=== PATIENT | male | born 1965 | race Two or more races ===

== ENCOUNTER 2019-01-31 15:09 | Inpatient (IN) | payer MEDICAID, OTHER ==
[2019-01-31] VITALS (16 sets, daily range): BP systolic 102–163; BP diastolic 51–85
[~2019-01-31] VITALS: Ht 170.2 cm; Wt 56.7 kg
[2019-01-31] MEDS ORDERED: SODIUM CHLORIDE 0.9% 1,000 ML IV ONE (15:26)
[2019-01-31 15:57] LABS: BASOPHILS % 0.5 % (0.0-2.0); EOSINOPHILS % 0.7 % (0.0-5.0); HEMATOCRIT. 39.8 % (42.0-52.0); HEMOGLOBIN. 13.1 g/dL (14.0-18.0); LYMPHOCYTES % 16.4 % (20.0-50.0); MEAN CORPUSCULAR VOLUME 97.2 fL (80.0-94.0); MEAN PLATELET VOLUME 7.9 fl (7.4-10.4); NEUTROPHILS % 74.4 % (40.0-76.0); PLATELET 300 x1000/uL (130-400)
[2019-01-31 16:16] LABS: CHLORIDE 102 mEq/L (98-107)
[2019-01-31 16:20] LABS: ETHANOL BLOOD < 10 mg/dL
[2019-01-31] MEDS ORDERED: NOREPINEPHRINE 4MG/250ML PMX 250 ML IV ONE (16:20)
[2019-01-31] MEDS ORDERED: DOPAMINE 400MG/250ML PREMIX 250 ML IV ONE (16:21)
[2019-01-31 16:33] LABS: CLARITY URINE CLOUDY (CLEAR); COLOR URINE DARK YELLOW (YELLOW); KETONES URINE TRACE (NEGATIVE); LEUKOCYTE ESTERASE URINE NEGATIVE (NEGATIVE); NITRITE URINE NEGATIVE (NEGATIVE); OCCULT BLOOD URINE NEGATIVE (NEGATIVE); PROTEIN URINE TRACE (NEGATIVE); SPECIFIC GRAVITY URINE 1.017 (1.005-1.030); UROBILINOGEN URINE 0.2 E.U./dL (0.2-1.0)
[2019-01-31 16:43] LABS: *AMPHETAMINES SCREEN URINE NEGATIVE (NEGATIVE); *BARBITURATES SCREEN URINE NEGATIVE (NEGATIVE); *BENZODIAZEPINES SCREEN URINE PRESUMTIVE POSITIVE (NEGATIVE)
[2019-01-31 16:44] LABS: *COCAINE SCREEN URINE NEGATIVE (NEGATIVE); CANNABINOID URINE SCREEN NEGATIVE (NEGATIVE); METHADONE URINE SCREEN NEGATIVE (NEGATIVE); OPIATES URINE SCREEN NEGATIVE (NEGATIVE); PHENCYCLIDINE URINE SCREEN NEGATIVE (NEGATIVE)
[2019-01-31] MEDS ORDERED: GLUCAGON,HUMAN RECOMBINANT 1MG/VIAL IV ONE ×4 (17:00→17:15)
[2019-01-31 17:12] LABS: CREATINE KINASE 1190 IU/L (39-308)
[2019-01-31] MEDS ORDERED: PHENYLEPHRINE 10 MG in DEXT 5% WATER 249 ML IV SCH (18:15)
[2019-01-31] MEDS ORDERED: NOREPINEPHRINE 4 MG in DEXT 5% WATER 250 ML IV PRN (18:15)
[2019-01-31] MEDS ORDERED: VASOPRESSIN 10 UNIT in SODIUM CHLORIDE 0.9% 99.5 ML SCH (18:15)
[2019-01-31] MEDS ORDERED: INSULIN REGULAR (DRIP) 100 UNITS in SODIUM CHLORIDE 0.9% 100 ML IV ONE (18:15)
[2019-01-31] MEDS ORDERED: DOPAMINE 400MG/250ML PREMIX 250 ML IV SCH (18:15)
[2019-01-31] MEDS ORDERED: VASOPRESSIN 10 UNIT in SODIUM CHLORIDE 0.9% 99.5 ML IV SCH (18:45)
[2019-01-31] MEDS ORDERED: NOREPINEPHRINE 4MG/250ML PMX 250 ML IV PRN (19:00)
[2019-01-31] MEDS ORDERED: DEXT 5% WATER + KCL 20MEQ/L 1,000 ML IV ONE (19:15)
[2019-01-31] MEDS ORDERED: DEXTROSE 50% WATER 50ML SYRINGE IV ONE ×2 (19:15→20:43)
[2019-01-31] MEDS ORDERED: INSULIN REGULAR (DRIP) 100 UNITS in SODIUM CHLORIDE 0.9% 99 ML IV ONE (19:45)
[2019-01-31] MEDS ORDERED: INSULIN REGULAR (DRIP) 100 UNITS in SODIUM CHLORIDE 0.9% 99 ML IV NR (22:05)
[2019-01-31] MEDS ORDERED: LORAZEPAM 2MG/ML CPJ IV PRN (22:30)
[2019-01-31] MEDS ORDERED: PHENYLEPHRINE 40 MG in DEXT 5% WATER 246 ML IV PRN (22:30)
[2019-01-31] MEDS: INSULIN REGULAR (DRIP) 100 UNITS in SODIUM CHLORIDE 0.9% 99 ML IV PRN (23:00)
[2019-01-31] MEDS ORDERED: HYDROCODONE/ACETAMINOPHEN 5/325MG TABLET PO PRN (23:00)
[2019-01-31] MEDS ORDERED: ONDANSETRON HCL 4MG/2ML INJ IV PRN (23:00)
[2019-01-31] MEDS ORDERED: MORPHINE SULFATE 2 MG/ML CPJ (NOT FOR IM USE) IV PRN (23:00)
[2019-01-31] MEDS ORDERED: IPRATROPIUM/ALBUTEROL 0.5-3(2.5)MG/3ML NEB NEB PRN (23:00)
[2019-01-31] MEDS ORDERED: ENOXAPARIN 40MG/0.4ML SYR SUBCUT SCH (23:00)
[2019-01-31] MEDS: DEXTROSE 50% WATER 50ML SYRINGE IV PRN (23:07)
[2019-01-31] MEDS: NOREPINEPHRINE 32 MG in DEXT 5% WATER 468 ML IV PRN (23:44)
[2019-02-01] VITALS (150 sets, daily range): BP systolic 44–137; BP diastolic 23–89
[2019-02-01] MEDS ORDERED: DOPAMINE 400MG/250ML PREMIX 250 ML IV PRN
[2019-02-01] MEDS: DEXTROSE 50% WATER 50ML SYRINGE IV PRN ×21 (00:16→19:35)
[2019-02-01] MEDS: INSULIN REGULAR (DRIP) 100 UNITS in SODIUM CHLORIDE 0.9% 99 ML IV PRN ×10 (01:05→17:27)
[2019-02-01] MEDS: CLONAZEPAM 1MG TABLET PO SCH ×3 (05:54→21:33)
[2019-02-01] MEDS ORDERED: POTASSIUM CHLORIDE INJ 20 MEQ in DEXTROSE 5% WATER 1,000 ML IV SCH (06:00)
[2019-02-01] MEDS ORDERED: DEXT 5% WATER + KCL 20MEQ/L 1,000 ML IV SCH (06:00)
[2019-02-01 06:06] LABS: CHLORIDE 101 mEq/L (98-107)
[2019-02-01 06:18] LABS: CREATINE KINASE MB FRACTION 47.7 ng/mL (0.5-3.6)
[2019-02-01 06:26] LABS: CREATINE KINASE 3621 IU/L (39-308)
[2019-02-01] MEDS ORDERED: POTASSIUM CHLORIDE IV SCH (08:00)
[2019-02-01] MEDS ORDERED: WATER IV SCH (08:00)
[2019-02-01] MEDS ORDERED: DEXT 10% IV SCH (08:00)
[2019-02-01] MEDS: THIAMINE HCL 100MG TABLET PO SCH (08:29)
[2019-02-01] MEDS ORDERED: ENOXAPARIN 30MG/0.3ML SYR SUBCUT SCH (09:00)
[2019-02-01] MEDS: LEVETIRACETAM 500MG TABLET PO SCH ×2 (09:39→21:33)
[2019-02-01] MEDS: MIDODRINE HCL 5MG TABLET PO SCH ×3 (09:39→17:07)
[2019-02-01] MEDS: VASOPRESSIN 10 UNIT in SODIUM CHLORIDE 0.9% 99.5 ML IV PRN ×2 (11:09→19:09)
[2019-02-01] MEDS ORDERED: GLUCAGON,HUMAN RECOMBINANT 1MG/VIAL IV ONE (12:15)
[2019-02-01] MEDS ORDERED: WATER IV ONE (13:00)
[2019-02-01] MEDS ORDERED: GLUCAGON HUMAN RECOMBINANT IV ONE (13:00)
[2019-02-01] MEDS ORDERED: DEXTROSE 5% IV ONE (13:00)
[2019-02-01] MEDS ORDERED: DEXT 10% WATER 1,000 ML IV ONE (16:00)
[2019-02-01 16:21] LABS: CREATINE KINASE MB FRACTION 31.3 ng/mL (0.5-3.6)
[2019-02-01 16:45] LABS: BASOPHILS % 0.1 % (0.0-2.0); EOSINOPHILS % 0.1 % (0.0-5.0); HEMATOCRIT. 42.3 % (42.0-52.0); HEMOGLOBIN. 13.7 g/dL (14.0-18.0); LYMPHOCYTES % 10.8 % (20.0-50.0); MEAN CORPUSCULAR HEMOGLOBIN 31.2 pg (28.0-32.0); MEAN CORPUSCULAR VOLUME 96.1 fL (80.0-94.0); MEAN PLATELET VOLUME 8.2 fl (7.4-10.4); MONOCYTES % 10.9 % (2.0-8.0); NEUTROPHILS % 78.1 % (40.0-76.0); PLATELET 302 x1000/uL (130-400); RED CELL DISTRIBUTION WIDTH 13.7 % (11.6-14.6)
[2019-02-01 16:46] LABS: CHLORIDE 98 mEq/L (98-107)
[2019-02-01] MEDS: NOREPINEPHRINE 32 MG in DEXT 5% WATER 468 ML IV PRN (17:29)
[2019-02-01] MEDS ORDERED: POTASSIUM CHLORIDE INJ 40 MEQ in DEXT 5% WATER 250 ML IV SCH (19:30)
[2019-02-02] VITALS (119 sets, daily range): BP systolic 76–164; BP diastolic 43–96
[2019-02-02] MEDS: SODIUM CHLORIDE 0.9% 1,000 ML IV SCH ×4 (01:11→21:10)
[2019-02-02] MEDS: VASOPRESSIN 10 UNIT in SODIUM CHLORIDE 0.9% 99.5 ML IV PRN ×2 (01:42→07:18)
[2019-02-02 05:07] LABS: BASOPHILS % 0.2 % (0.0-2.0); EOSINOPHILS % 0.2 % (0.0-5.0); HEMOGLOBIN. 13.7 g/dL (14.0-18.0); LYMPHOCYTES % 13.9 % (20.0-50.0); MEAN CORPUSCULAR HEMOGLOBIN 31.7 pg (28.0-32.0); MEAN CORPUSCULAR VOLUME 95.1 fL (80.0-94.0); MEAN PLATELET VOLUME 7.9 fl (7.4-10.4); MONOCYTES % 9.4 % (2.0-8.0); NEUTROPHILS % 76.3 % (40.0-76.0); PLATELET 310 x1000/uL (130-400); RED BLOOD CELL COUNT 4.32 mill/uL (4.7-6.1); RED CELL DISTRIBUTION WIDTH 13.5 % (11.6-14.6)
[2019-02-02 05:11] LABS: CHLORIDE 91 mEq/L (98-107)
[2019-02-02 05:30] LABS: CREATINE KINASE 2469 IU/L (39-308)
[2019-02-02] MEDS: CLONAZEPAM 1MG TABLET PO SCH ×3 (05:32→21:03)
[2019-02-02] MEDS ORDERED: INSULIN LISPRO 100 UNITS/ML SUBCUT SCH (08:00)
[2019-02-02] MEDS ORDERED: DEXTROSE 50% WATER 50ML SYRINGE IV PRN (08:00)
[2019-02-02] MEDS: THIAMINE HCL 100MG TABLET PO SCH (08:22)
[2019-02-02] MEDS: LEVETIRACETAM 500MG TABLET PO SCH ×2 (08:22→21:03)
[2019-02-02] MEDS: MIDODRINE HCL 5MG TABLET PO SCH ×3 (08:25→16:42)
[2019-02-02] MEDS ORDERED: VANCOMYCIN 1500MG in DEXTROSE 5% WATER 250ML IV NR (09:00)
[2019-02-02] MEDS ORDERED: ENOXAPARIN 40MG/0.4ML SYR SUBCUT SCH (09:00)
[2019-02-02] MEDS: BLOOD SUGAR DIAGNOSTIC STRIP TEST SCH ×2 (11:30→17:00)
[2019-02-02] MEDS ORDERED: BISACODYL 10MG SUPP PR NR (12:00)
[2019-02-02] MEDS: PANTOPRAZOLE SODIUM 40 MG/VIAL IV SCH (12:38)
[2019-02-02] MEDS ORDERED: LACTULOSE 20G/30ML UDC PO SCH (14:00)
[2019-02-02 15:08] LABS: CLARITY URINE CLEAR (CLEAR); COLOR URINE YELLOW (YELLOW); KETONES URINE NEGATIVE (NEGATIVE); LEUKOCYTE ESTERASE URINE NEGATIVE (NEGATIVE); NITRITE URINE NEGATIVE (NEGATIVE); OCCULT BLOOD URINE TRACE (NEGATIVE); PROTEIN URINE NEGATIVE (NEGATIVE); SPECIFIC GRAVITY URINE 1.012 (1.005-1.030); UROBILINOGEN URINE 0.2 E.U./dL (0.2-1.0)
[2019-02-02] MEDS: VANCOMYCIN 1 G PREMIX 200 ML IV SCH (16:41)
[2019-02-02] MEDS: NOREPINEPHRINE 32 MG in DEXT 5% WATER 468 ML IV PRN (21:03)
[2019-02-03] VITALS (99 sets, daily range): BP systolic 81–147; BP diastolic 25–98
[2019-02-03] MEDS: PANTOPRAZOLE SODIUM 40 MG/VIAL IV SCH ×2 (00:02→12:16)
[2019-02-03] MEDS: VANCOMYCIN 1 G PREMIX 200 ML IV SCH ×3 (00:02→16:29)
[2019-02-03] MEDS: BLOOD SUGAR DIAGNOSTIC STRIP TEST SCH ×4 (00:28→17:41)
[2019-02-03] MEDS: CLONAZEPAM 1MG TABLET PO SCH ×3 (05:24→21:11)
[2019-02-03] MEDS: SODIUM CHLORIDE 0.9% 1,000 ML IV SCH ×3 (06:18→18:13)
[2019-02-03 06:43] LABS: CHLORIDE 103 mEq/L (98-107)
[2019-02-03 08:40] LABS: HEPATITIS B SURFACE ANTIGEN NEGATIVE
[2019-02-03] MEDS: LEVETIRACETAM 500MG TABLET PO SCH ×2 (08:50→21:11)
[2019-02-03] MEDS: THIAMINE HCL 100MG TABLET PO SCH (08:50)
[2019-02-03] MEDS: MIDODRINE HCL 5MG TABLET PO SCH ×3 (08:50→16:29)
[2019-02-03 09:09] LABS: HEPATITIS A AB IGM NEGATIVE (NEGATIVE)
[2019-02-03 10:48] LABS: HEMATOCRIT. 42.2 % (42.0-52.0); HEMOGLOBIN. 14.3 g/dL (14.0-18.0); MEAN CORPUSCULAR HEMOGLOBIN 32.8 pg (28.0-32.0); MEAN CORPUSCULAR VOLUME 96.7 fL (80.0-94.0); MEAN PLATELET VOLUME 8.1 fl (7.4-10.4); PLATELET 251 x1000/uL (130-400); RED BLOOD CELL COUNT 4.36 mill/uL (4.7-6.1); RED CELL DISTRIBUTION WIDTH 13.8 % (11.6-14.6)
[2019-02-03] MEDS ORDERED: DIATR MEGLU/DIATRIZOATE SOLN 30ML PO SCH (11:15)
[2019-02-03 11:24] LABS: PLATELET ESTIMATE NORMAL
[2019-02-03] MEDS ORDERED: IOHEXOL-300 100 ML BOTTLE ONE (14:01)
[2019-02-03 16:30] LABS: CREATINE KINASE 657 IU/L (39-308)
[2019-02-04] VITALS (90 sets, daily range): BP systolic 85–161; BP diastolic 27–98
[2019-02-04] MEDS: VANCOMYCIN 1 G PREMIX 200 ML IV SCH (01:17)
[2019-02-04] MEDS: PANTOPRAZOLE SODIUM 40 MG/VIAL IV SCH ×2 (01:17→12:02)
[2019-02-04] MEDS: SODIUM CHLORIDE 0.9% 1,000 ML IV SCH ×2 (03:40→12:02)
[2019-02-04 05:46] LABS: HEMATOCRIT. 40.9 % (42.0-52.0); HEMOGLOBIN. 13.5 g/dL (14.0-18.0); MEAN CORPUSCULAR HEMOGLOBIN 31.7 pg (28.0-32.0); MEAN CORPUSCULAR VOLUME 96.1 fL (80.0-94.0); PLATELET 281 x1000/uL (130-400); RED BLOOD CELL COUNT 4.25 mill/uL (4.7-6.1); RED CELL DISTRIBUTION WIDTH 13.8 % (11.6-14.6)
[2019-02-04 05:51] LABS: CHLORIDE 104 mEq/L (98-107)
[2019-02-04] MEDS: BLOOD SUGAR DIAGNOSTIC STRIP TEST SCH ×3 (06:47→11:34)
[2019-02-04] MEDS: CLONAZEPAM 1MG TABLET PO SCH ×3 (06:50→21:19)
[2019-02-04 07:18] LABS: PLATELET ESTIMATE NORMAL
[2019-02-04] MEDS: MIDODRINE HCL 5MG TABLET PO SCH ×3 (08:41→18:17)
[2019-02-04] MEDS: LEVETIRACETAM 500MG TABLET PO SCH ×2 (08:41→21:19)
[2019-02-04] MEDS: THIAMINE HCL 100MG TABLET PO SCH (08:41)
[2019-02-05] VITALS: BP 114/72
[2019-02-05] MEDS: SODIUM CHLORIDE 0.9% 1,000 ML IV SCH ×3 (00:21→13:12)
[2019-02-05] MEDS: PANTOPRAZOLE SODIUM 40 MG/VIAL IV SCH ×2 (00:30→12:16)
[2019-02-05 04:00] VITALS: BP 90/58
[2019-02-05 06:51] LABS: HEMOGLOBIN. 11.6 g/dL (14.0-18.0); MEAN CORPUSCULAR HEMOGLOBIN 31.7 pg (28.0-32.0); MEAN CORPUSCULAR VOLUME 95.4 fL (80.0-94.0); MEAN PLATELET VOLUME 7.8 fl (7.4-10.4); PLATELET 237 x1000/uL (130-400); RED BLOOD CELL COUNT 3.67 mill/uL (4.7-6.1); RED CELL DISTRIBUTION WIDTH 13.4 % (11.6-14.6)
[2019-02-05] MEDS: CLONAZEPAM 1MG TABLET PO SCH ×2 (07:03→15:02)
[2019-02-05 07:50] LABS: CHLORIDE 107 mEq/L (98-107)
[2019-02-05 08:00] VITALS: BP 95/58
[2019-02-05 08:51] LABS: PLATELET ESTIMATE NORMAL
[2019-02-05] MEDS: THIAMINE HCL 100MG TABLET PO SCH (09:13)
[2019-02-05] MEDS: MIDODRINE HCL 5MG TABLET PO SCH (09:13)
[2019-02-05] MEDS: LEVETIRACETAM 500MG TABLET PO SCH (09:13)
[2019-02-05 12:00] VITALS: BP 100/60
[2019-02-05] MEDS ORDERED: DOCUSATE SODIUM 250MG CAPSULE PO SCH (12:30)
[2019-02-05] MEDS ORDERED: POTASSIUM CHLORIDE 20MEQ TABLET SR PO NR (12:30)
[2019-02-05 16:00] VITALS: BP 103/63
[2019-02-05 16:57] VITALS: BP 103/63
[2019-02-05] MEDS ORDERED: VANCOMYCIN 1 G PREMIX 200 ML IV SCH (18:00)
[2019-02-06] MEDS ORDERED: VANCOMYCIN 750 MG PREMIX 150 ML IV SCH (06:00)
== END 2019-02-05 18:35 | disposition home or self-care (01) | DRG 812 ==
LOC: ER 15:09 → MICUNO 18:38 → ENRESERV 20:18 → MICUSO 02-01 05:38 → 6WST 02-04 23:15
PROVIDERS: ADMIT Internal Medicine Nephrology; ATTEND Internal Medicine Nephrology
PROC: 06HY33Z Insertion of Infusion Device into Lower Vein, Percutaneous Approach (ICD-10-PCS; principal; 2019-01-31)
PROC: B54BZZA Ultrasonography of Right Lower Extremity Veins, Guidance (ICD-10-PCS; 2019-01-31)
DX: T44.7X1A Poisoning by beta-adrenoreceptor antagonists, accidental (unintentional), initial encounter (principal); N17.0 Acute kidney failure with tubular necrosis; K72.00 Acute and subacute hepatic failure without coma; R57.0 Cardiogenic shock; G93.41 Metabolic encephalopathy; K92.0 Hematemesis; I95.9 Hypotension, unspecified; E44.1 Mild protein-calorie malnutrition; M62.82 Rhabdomyolysis; E87.1 Hypo-osmolality and hyponatremia; G40.909 Epilepsy, unspecified, not intractable, without status epilepticus; R74.0 Nonspecific elevation of levels of transaminase and lactic acid dehydrogenase [LDH]; F99 Mental disorder, not otherwise specified; I10 Essential (primary) hypertension; R00.1 Bradycardia, unspecified; Z68.1 Body mass index [BMI] 19.9 or less, adult; Z79.899 Other long term (current) drug therapy; Y92.89 Other specified places as the place of occurrence of the external cause
CPT/HCPCS: 36415; 70551; 71045; 74018; 74177; 76700; 80048; 80076; 80202; 80305; 80307; 80320; 80329; 81003; 82140; 82248; 82550; 82553; 82962; 83605; 84484; 86705; 86709; 86803; 87340; 93005; 93306; 93970; 97162; 99291; C9113; J1265; J1610; J1650; J1815; J2060; J3370; J3480; J3490; J7030; J7050; J7060; J7070; Q9967; G0480

== ENCOUNTER 2019-10-14 18:40 | Emergency (ER) | payer OTHER ==
[~2019-10-14] VITALS: Ht 170.2 cm; Wt 66.0 kg
[2019-10-14] MEDS ORDERED: SODIUM CHLORIDE 0.9% 1,000 ML IV ONE (21:13)
[2019-10-14] MEDS ORDERED: LEVETIRACETAM 1000MG/100ML 100 ML IV ONE (21:15)
[2019-10-14 23:06] LABS: CLARITY URINE CLEAR (CLEAR); COLOR URINE YELLOW (YELLOW); KETONES URINE TRACE (NEGATIVE); LEUKOCYTE ESTERASE URINE TRACE (NEGATIVE); NITRITE URINE NEGATIVE (NEGATIVE); OCCULT BLOOD URINE TRACE (NEGATIVE); PH URINE 5.5 (4.5-8.0); PROTEIN URINE 1+ (NEGATIVE); SPECIFIC GRAVITY URINE 1.015 (1.005-1.030); UROBILINOGEN URINE 0.2 E.U./dL (0.2-1.0)
[2019-10-14 23:39] LABS: *BARBITURATES SCREEN URINE NEGATIVE (NEGATIVE); *BENZODIAZEPINES SCREEN URINE NEGATIVE (NEGATIVE); *COCAINE SCREEN URINE NEGATIVE (NEGATIVE); METHADONE URINE SCREEN NEGATIVE (NEGATIVE)
[2019-10-14 23:40] LABS: *AMPHETAMINES SCREEN URINE NEGATIVE (NEGATIVE); CANNABINOID URINE SCREEN PRESUMTIVE POSITIVE (NEGATIVE); OPIATES URINE SCREEN NEGATIVE (NEGATIVE); PHENCYCLIDINE URINE SCREEN NEGATIVE (NEGATIVE)
[2019-10-15 00:27] LABS: BASOPHILS % 0.3 % (0.0-2.0); EOSINOPHILS % 0.6 % (0.0-5.0); HEMATOCRIT. 41.9 % (42.0-52.0); LYMPHOCYTES % 28.2 % (20.0-50.0); MEAN CORPUSCULAR HEMOGLOBIN 30.6 pg (28.0-32.0); MEAN CORPUSCULAR VOLUME 91.9 fL (80.0-94.0); MEAN PLATELET VOLUME 7.8 fl (7.4-10.4); MONOCYTES % 9.8 % (2.0-8.0); NEUTROPHILS % 61.1 % (40.0-76.0); PLATELET 234 x1000/uL (130-400); RED BLOOD CELL COUNT 4.56 mill/uL (4.7-6.1); RED CELL DISTRIBUTION WIDTH 14.9 % (11.6-14.6)
[2019-10-15 00:29] LABS: CHLORIDE 107 mEq/L (98-107)
[2019-10-15 00:35] LABS: ETHANOL BLOOD < 10 mg/dL
[2019-10-15] MEDS ORDERED: POTASSIUM CHLORIDE 20MEQ TABLET SR PO SCH (02:00)
[2019-10-15 03:22] VITALS: BP 147/89
== END 2019-10-15 03:41 | disposition home or self-care (01) ==
LOC: ER 18:40
DX: G40.909 Epilepsy, unspecified, not intractable, without status epilepticus (principal); E87.6 Hypokalemia; I10 Essential (primary) hypertension; E11.9 Type 2 diabetes mellitus without complications; E78.00 Pure hypercholesterolemia, unspecified; Z72.0 Tobacco use; Z91.14 Patient's other noncompliance with medication regimen; Z79.899 Other long term (current) drug therapy
CPT/HCPCS: 36415; 80053; 80305; 80320; 81003; 82962; 85025; 96365; 99285; J1953; J7030; G0480

== ENCOUNTER 2019-11-09 03:08 | Emergency (ER) | payer MEDICAID, OTHER ==
[~2019-11-09] VITALS: Ht 170.2 cm; Wt 61.0 kg
[2019-11-09] MEDS ORDERED: LEVETIRACETAM 500MG TABLET PO ONE (03:45)
[2019-11-09] MEDS ORDERED: ACETAMINOPHEN 325MG TABLET PO ONE (03:45)
[2019-11-09 03:55] VITALS: BP 130/75
== END 2019-11-09 04:34 | disposition home or self-care (01) ==
LOC: ER 03:08
DX: R51 Headache (principal); R06.6 Hiccough; E11.9 Type 2 diabetes mellitus without complications; I10 Essential (primary) hypertension; Z76.0 Encounter for issue of repeat prescription
CPT/HCPCS: 99283

== ENCOUNTER 2024-03-09 00:25 | Emergency (ER) | payer BC, MEDICAID ==
[~2024-03-09] VITALS: Ht 170.2 cm; Wt 78.0 kg
[2024-03-09 00:40] VITALS: BP 128/85; PULSE 91; RESP 18; TEMP 98.4; O2SAT 100
[2024-03-09] MEDS: IPRATROPIUM BROMIDE (0.02%) 0.5MG/2.5ML NEB HHN STA (02:13)
[2024-03-09] MEDS: ALBUTEROL (0.083%) 2.5MG/3ML NEB HHN STA (02:13)
[2024-03-09 02:32] LABS: BASOPHILS % 0.4 % (0.0-2.0); EOSINOPHILS % 0.8 % (0.0-5.0); HEMATOCRIT. 46.3 % (42.0-52.0); HEMOGLOBIN. 14.9 g/dL (14.0-18.0); LYMPHOCYTES % 36.3 % (20.0-50.0); MEAN CORPUSCULAR HEMOGLOBIN 29.2 pg (28.0-32.0); MEAN CORPUSCULAR HGB CONC 32.1 g/dL (31.0-37.0); MEAN CORPUSCULAR VOLUME 91.1 fL (80.0-94.0); MEAN PLATELET VOLUME 7.9 fl (7.4-10.4); MONOCYTES % 9.6 % (2.0-8.0); NEUTROPHILS % 52.9 % (40.0-76.0); PLATELET 213 x1000/uL (130-400); RED BLOOD CELL COUNT 5.08 mill/uL (4.7-6.1); RED CELL DISTRIBUTION WIDTH 14.1 % (11.6-14.6); WHITE BLOOD COUNT 8.7 x1000/uL (4.5-11.0)
[2024-03-09 03:10] LABS: CARBON DIOXIDE 27 mEq/L (21-32); CHLORIDE 105 mEq/L (98-107); POTASSIUM 4.1 mEq/L (3.5-5.1); SODIUM 140 mEq/L (136-145)
[2024-03-09 03:11] LABS: CALCIUM 9.3 mg/dL (8.7-10.4)
[2024-03-09 03:16] LABS: CREATININE 1.1 mg/dL (0.6-1.3); GLUCOSE 141 mg/dL (70-105); UREA NITROGEN BLOOD 11 mg/dL (9-23)
[2024-03-09] MEDS ORDERED: PROT20 MT (03:39)
[2024-03-09] MEDS ORDERED: SUCR1TAB30 MT (03:39)
== END 2024-03-09 04:00 | disposition left against medical advice (07) ==
LOC: ER 00:25
DX: K21.9 Gastro-esophageal reflux disease without esophagitis (principal); E11.9 Type 2 diabetes mellitus without complications; I10 Essential (primary) hypertension
CPT/HCPCS: 36415; 71045; 80048; 83880; 85025; 93005; 99285